=== PATIENT | female | born 1935 | race Caucasian/White ===

== ENCOUNTER 2017-06-10 08:08 | Emergency (ER) | payer OTHER ==
[~2017-06-10] VITALS: Ht 157.5 cm; Wt 60.8 kg
[~2017-06-10 08:08] MED LIST: AMITIZA24 MICROGR PO
[2017-06-10] MEDS ORDERED: GOLYTELY SOLU4000 ML PO (12:43)
[2017-06-10 13:37] VITALS: BP 171/68
== END 2017-06-10 13:40 | disposition home or self-care (01) ==
LOC: EME 08:08
DX: K56.41 Fecal impaction (principal); K60.2 Anal fissure, unspecified; K21.9 Gastro-esophageal reflux disease without esophagitis; I10 Essential (primary) hypertension; F03.90 Unspecified dementia, unspecified severity, without behavioral disturbance, psychotic disturbance, mood disturbance, and anxiety; Z87.891 Personal history of nicotine dependence; Z88.2 Allergy status to sulfonamides; Z88.8 Allergy status to other drugs, medicaments and biological substances
CPT/HCPCS: 99281; 99285